=== PATIENT | male | born 1960 | race Caucasian/White ===

== ENCOUNTER 2022-12-24 05:41 | Outpatient (CLI) | payer MEDICARE ==
[~2022-12-24] VITALS: Ht 167.6 cm; Wt 91.4 kg
[~2022-12-24 05:41] MED LIST: CRB200T PO; EZET10TA5 PO; FENO145T20 PO; OMEP20CA12 PO
[2022-12-26] MEDS ORDERED: FENO145T26 PO (12:40)
[2022-12-26] MEDS ORDERED: CARB200T PO (12:40)
[2022-12-26] MEDS ORDERED: EZET10TA49 PO (12:40)
[2022-12-26] MEDS ORDERED: METO50TA15 PO (12:40)
== END 2022-12-26 12:51 | disposition home or self-care (01) ==
LOC: PREOP 05:41
PROVIDERS: ATTEND Surgery
DX: Z01.818 Encounter for other preprocedural examination (principal); R19.5 Other fecal abnormalities

== ENCOUNTER 2023-01-05 11:56 | Day surgery (SDC) | payer MEDICARE ==
[~2023-01-05] VITALS: Ht 167.6 cm; Wt 91.4 kg
[~2023-01-05 11:56] MED LIST changes: +CARB200T PO; +EZET10TA49 PO; +FENO145T26 PO; +METO50TA15 PO
[2023-01-05] MEDS ORDERED: LACTATED RINGERS 1,000 ML IV STA (11:59)
--- NOTE | 2023-01-05 12:04 | Progress Note-Pre Operative ---
Pre-Operative Progress Note Date of Available H&P: December 16, 2022 Date H&P Reviewed: Jan 05, 2023 Time H&P Reviewed: 12:02 History & Physical: H&P Reviewed, Patient Examed, No changes noted Pre-Operative Diagnosis: +ColAJ Maldonado DO Jan 05, 2023 12:04
[2023-01-05] MEDS ORDERED: PROPOFOL INJECTION 50 ML IV ONE (12:13)
[2023-01-05] MEDS ORDERED: MIDAZOLAM 2 MG/2 ML (VERSED) VIAL ONE (12:13)
[2023-01-05 12:22] VITALS: BP 168/89
[2023-01-05 12:55] VITALS: BP 94/51
[2023-01-05 13:00] VITALS: BP 128/71
--- NOTE | 2023-01-05 13:00 | Progress Note-Post Operative ---
Post-Operative Progess Note Surgeon (s)/Lead Mechanic (s) Surgeon AJ SEGURA DO Lead Mechanic: MARCIE Weller student Pre-Operative Diagnosis +Cologuard Post-Operative Diagnosis Polyps Diverticula Int hemorrhoids Procedure & Operative Findings Date of Procedure 01/05/23 Procedure Performed/Findings Colonoscopy with snare Polypectomy Colonoscopy with hot biopsy PROCEDURE NOTE: After informed consent was obtained, the patient was brought to the endoscopy suite, placed in bed in left lateral decubitus position. He was administered IV sedation by the [employer] who then monitored his vitals the entire time, heart rate, blood pressure and pulse ox and the scope was inserted, pushed all the way to about 140 cm and pushed into the cecum. Just before the Cecum in the ascending colon saw a large flat polyp and elected to remove it with a snare polypctomy. In the cecum I took a picture of appendiceal orifice and noted the ileocecal valve. Then slowly withdrew the scope insufflating to look circumferentially at the almanzar starting in the cecum and up the ascending colon. I found 3-4 more small flat polyps here that I elected to remove with hot biopsy (too small to snare). Then, continued up to the hepatic flexure, then down the transverse colon, splenic flexure, into the descending colon and down into the sigmoid and then into the rectal vault. Throughout the left side of the colon I saw diverticula and took a picture of them. Finally, retroflexed the scope and took a picture of the internal hemorrhoids. The patient tolerated the procedure. He was recovered in endoscopy suite. Recommended for repeat colonoscopy in 10 years. Anesthesia Type IV sedation by [employer] Estimated Blood Loss Estimated blood loss (mL): scant Specimens/Packing Specimens Removed Asc colon polyp x 4 AJ SEGURA DO Jan 05, 2023 13:00
--- NOTE | 2023-01-05 13:01 | Endoscopy Discharge Instruct ---
Endo Procedure/Findings Findings 1.: Polyp 2.: Diverticulosis 3.: Internal Hemorrhoids Discharge Instructions - Activity: You might feel a little sleepy until tomorrow. This is due to the medicine you received to relax you. Until tomorrow, you should: NOT drive a car, operate machinery or power tools. NOT drink any alcoholic beverages. NOT make any important decisions or sign importortant papers. Do not return to work until tomorrow, unless otherwise instructed. Resume previous activities tomorrow. Diet: Start by taking liquids. If you tolerate liquids, advance to solid food. 1.: Colonscopy in 3 years Notify Physician - If you experience excessive bleeding, unusual abdominal pain, fever, or chest pain, contact your doctor immediately. Follow-Up: Other Follow up in my office in one week AJ SEGURA DO Jan 05, 2023 13:01
[2023-01-05 13:10] VITALS: BP 128/71
--- NOTE | 2023-01-05 13:10 | Anesthesia-General Post-Op ---
MAC Patient Condition Mental Status/LOC: Same as Preop Cardiovascular: Satisfactory Nausea/Vomiting: Absent Respiratory: Satisfactory Pain: Controlled Complications: Absent Post Op Complications Complications None Follow Up Care/Instructions Patient Instructions None needed. Anesthesiology Discharge Order Discharge Order Patient is doing well, no complaints, stable vital signs, no apparent adverse anesthesia problems. No complications reported per nursing. TONY MAIN CRNA Jan 05, 2023 13:10
[2023-01-05 13:45] VITALS: BP 128/71
== END 2023-01-05 13:45 | disposition home or self-care (01) ==
LOC: ENDO 11:56
PROVIDERS: ATTEND Surgery
DX: Z12.11 Encounter for screening for malignant neoplasm of colon (principal); D12.2 Benign neoplasm of ascending colon; K57.30 Diverticulosis of large intestine without perforation or abscess without bleeding; K64.8 Other hemorrhoids; E66.9 Obesity, unspecified; Z28.310 Unvaccinated for COVID-19; Z68.32 Body mass index [BMI] 32.0-32.9, adult